=== PATIENT | male | born 1945 | race Caucasian/White ===

== ENCOUNTER 2017-09-25 13:52 | Outpatient (CLI) | payer MEDICARE, BC ==
--- NOTE | 2017-09-25 16:03 | MRI Report ---
EXAM: LEFT KNEE MRI WITHOUT CONTRAST EXAM DATE: 09/25/2017 02:47 PM. CLINICAL HISTORY: Left knee pain for a couple of months. COMPARISON: Left knee radiography from 09/20/2017. TECHNIQUE: Multiplanar, multisequence T1-weighted and fluid-sensitive sequences of the knee without c ontrast. Other: None. FINDINGS: Bones and articular cartilage: Tiny marginal osteophytes at the lateral femoral condyle, lateral tibi al plateau, medial femoral condyle, medial tibial plateau, patella. Focal mild subchondral marrow marlene ma at the posterior medial aspect of the medial tibial plateau. Focal grade 2 chondromalacia at the p osterior aspect of the lateral femoral condyle and lateral tibial plateau. Grade 2 chondromalacia at the posterior aspect of the medial femoral condyle and medial tibial plateau. Tiny articular cartilag e fissures at the lateral patellar facet. No patellar subluxation. Medial Meniscus: Horizontal and oblique tears at the posterior horn. A small portion of the posterior horn is displaced posterior laterally within the posterior lateral aspect of the medial joint compar tment (sagittal images 22 and 23 and coronal image 27). Oblique tear at the medial meniscal body. Lateral Meniscus: Degenerative intrasubstance signal throughout the lateral meniscus. Small radial an d oblique tears at the posterior horn. Cruciate Ligaments: The anterior and posterior cruciate ligaments are intact. Collateral Ligaments: The medial collateral and lateral collateral ligamentous structures are intact. Tendons: Tendinosis at the proximal end of the patellar tendon. Quadriceps and semimembranosus tendon s are unremarkable. There is distal popliteus tendinosis. Musculature: No edema or fatty atrophy. Other: Small to moderate-sized joint effusion. Moderate size popliteal cyst. Superior and medial torres llar plicae are present. The superior plica thickness is approximately 1 mm and the medial patellar p lica thickness is approximately 1.5 mm. The medial and lateral retinacula are intact. Subcutaneous e irish at the anterior aspect of the knee. No loose bodies. IMPRESSION: 1. Tricompartmental chondromalacia. 2. Horizontal and oblique tears at the posterior horn medial meniscus. A small portion of the posteri or horn is displaced posterior laterally within the posterior lateral aspect of the medial joint comp artment. There is also a small oblique tear at the medial meniscal body. 3. Small radial and oblique tears at the posterior horn lateral meniscus. Degenerative signal within the entire lateral meniscus. 4. Proximal patellar and distal popliteus tendinosis. 5. Small to moderate-sized joint effusion. Moderate-sized popliteal cyst. 6. Subcutaneous edema anterior to the patellar tendon. [facility] MUSCULOSKELETAL RADIOLOGY SECTION Referring Provider Line: [phone] SITE ID: [id number]
== END 2017-09-25 13:53 | disposition home or self-care (01) ==
LOC: DI 13:52
PROVIDERS: ATTEND Orthopaedic Surgery
DX: M25.562 Pain in left knee (principal); S83.242A Other tear of medial meniscus, current injury, left knee, initial encounter; S83.282A Other tear of lateral meniscus, current injury, left knee, initial encounter; M94.262 Chondromalacia, left knee; M71.22 Synovial cyst of popliteal space [Baker], left knee

== ENCOUNTER 2020-01-03 08:32 | Outpatient (CLI) | payer BC, MEDICARE ==
[2020-01-03 15:23] LABS: INR 2.3 (0.8-1.2); PT - PROTHROMBIN TIME 25.1 secs (9.9-12.6)
[2020-01-03 15:40] LABS: PSA TOTAL 7.232 ng/mL (0.000-2.000)
[2020-01-03 16:11] LABS: PSA FREE 0.93 ng/mL (0.16-2.81)
== END 2020-01-03 08:33 | disposition home or self-care (01) ==
LOC: LAB.S 08:32
PROVIDERS: ATTEND Family Medicine
DX: Z79.01 Long term (current) use of anticoagulants (principal); Z12.5 Encounter for screening for malignant neoplasm of prostate
CPT/HCPCS: 36415; 84153; 84154; 85610

== ENCOUNTER 2020-01-24 08:56 | Outpatient (CLI) | payer MEDICARE ==
[2020-01-24 15:37] LABS: ALBUMIN 3.9 g/dL (3.2-5.5); ALBUMIN/GLOBULIN RATIO 1.4 (1.0-2.2); ALKALINE PHOSPHATASE 56 IU/L (42-121); ALT ALANINE AMINOTRANSFERASE 22 IU/L (10-60); AST ASPARTATE AMINOTRANSFERASE 21 IU/L (10-42); BILIRUBIN,TOTAL 1.4 mg/dL (0.2-1.0); BUN - BLOOD UREA NITROGEN 29 mg/dL (6-20); CALCIUM 8.8 mg/dL (8.5-10.3); CARBON DIOXIDE - CO2 27 mmol/L (21-32); CHLORIDE 104 mmol/L (101-111); CHOL/HDL RATIO 3.4 (<5.0); CHOLESTEROL 187 mg/dL; CREATININE 1.2 mg/dL (0.6-1.2); GLUCOSE 107 mg/dL (70-100); HDL CHOLESTEROL 55 mg/dL; LDL CHOLESTEROL,CALCULATED 107 mg/dL; LDL/HDL RATIO 1.9 (<3.6); SODIUM 138 mmol/L (135-145); TOTAL PROTEIN 6.6 g/dL (6.7-8.2); VLDL CHOLESTEROL 25 mg/dL
== END 2020-01-24 08:57 | disposition home or self-care (01) ==
LOC: LAB.S 08:56
PROVIDERS: ATTEND Family Medicine
DX: E78.2 Mixed hyperlipidemia (principal); Z79.01 Long term (current) use of anticoagulants
CPT/HCPCS: 36415; 80053; 80061; 83721; 85610

== ENCOUNTER 2020-01-27 10:31 | Outpatient (CLI) | payer MEDICARE ==
[2020-01-27 11:40] LABS: INR 1.3 (0.8-1.2); PT - PROTHROMBIN TIME 14.4 secs (9.9-12.6)
== END 2020-01-27 10:32 | disposition home or self-care (01) ==
LOC: LAB 10:31
PROVIDERS: ATTEND Family Medicine
DX: Z79.01 Long term (current) use of anticoagulants (principal)
CPT/HCPCS: 36415; 85610

== ENCOUNTER 2020-02-06 10:25 | Outpatient (CLI) | payer MEDICARE | END 2020-02-06 10:26 | disposition home or self-care (01) | LOC: LAB.S 10:25 | PROVIDERS: ATTEND Family Medicine | DX: Z79.01 Long term (current) use of anticoagulants (principal) | CPT/HCPCS: 85610 ==